=== PATIENT | male | born 1995 | race Hispanic/Latino ===

== ENCOUNTER 2023-09-25 21:22 | Emergency (ER) | payer BC ==
[2023-09-25] MEDS: Acetaminophen 500 MG Tab PO ONE (21:44)
[2023-09-25] MEDS: predniSONE 20 MG Tab PO ONE (21:45)
[2023-09-25] MEDS: Ibuprofen 400 MG Tab PO ONE (21:45)
[2023-09-25] MEDS: Doxycycline 100 MG Cap PO ONE (21:45)
== END 2023-09-25 22:26 | disposition home or self-care (01) ==
LOC: MW.ED 21:22
DX: M10.9 Gout, unspecified (principal); L03.031 Cellulitis of right toe; Z79.899 Other long term (current) drug therapy; Z75.8 Other problems related to medical facilities and other health care
CPT/HCPCS: 99283; A9270

== ENCOUNTER 2024-09-20 12:33 | Emergency (ER) | payer BC | END 2024-09-20 15:44 | disposition home or self-care (01) | LOC: MW.ED 12:33 | DX: M79.672 Pain in left foot (principal); X50.0XXA Overexertion from strenuous movement or load, initial encounter; Y93.89 Activity, other specified; Y99.0 Civilian activity done for income or pay | CPT/HCPCS: 73630-26-LT; 73630-LT; 99282; 99283-25 ==